=== PATIENT | female | born 1960 | race Two or more races ===

== ENCOUNTER 2023-05-11 02:48 | Emergency (ER) | payer OTHER ==
[~2023-05-11] VITALS: Ht 160 cm; Wt 75.7 kg
[2023-05-11] MEDS ORDERED: XIGDUO XR 5 MG1 EAC1 (03:00)
[2023-05-11] MEDS ORDERED: ATORVASTATIN CA20 MG (03:01)
[2023-05-11] MEDS ORDERED: GLIPIZIDE10 MG (03:01)
[2023-05-11] MEDS ORDERED: LISINOPRIL2.5 MG (03:01)
[2023-05-11] MEDS ORDERED: NORFLEX100MG PO (04:55)
[2023-05-11] MEDS ORDERED: DICLOFENAC POTA50 MG PO (04:55)
== END 2023-05-11 05:05 | disposition home or self-care (01) ==
LOC: ER 02:48
DX: R51.9 Headache, unspecified (principal); M54.2 Cervicalgia